=== PATIENT | male | born 1965 | race Hispanic/Latino ===

== ENCOUNTER 2020-05-09 16:43 | Emergency (ER) | payer SELFPAY ==
[~2020-05-09] VITALS: Ht 180.3 cm; Wt 111.1 kg
== END 2020-05-09 17:18 | disposition home or self-care (01) ==
LOC: ER 17:08
DX: U07.1 COVID-19 (principal); I10 Essential (primary) hypertension; E11.9 Type 2 diabetes mellitus without complications
CPT/HCPCS: 99283